=== PATIENT | female | born 1945 | race Caucasian/White ===

== ENCOUNTER 2018-02-24 10:00 | Day surgery (SDC) | payer MEDICARE, BC ==
[2018-02-23 11:11] LABS: BASOPHILS 0.3 % (0-2); EOSINOPHILS 2.9 % (0-7); HEMATOCRIT 42.5 % (36.0-48.0); HEMOGLOBIN 14.6 g/dL (12-16); IMMATURE GRANULOCYTES 0.2 % (0-5); LYMPHOCYTES 48.1 % (15-50); MCH 32.5 pg (26.0-34.0); MCHC 34.4 g/dL (31.0-37.0); MCV 94.7 fL (80.0-100.0); MEAN PLATELET VOLUME 9.4 fL (7.4-10.4); MONOCYTES 7.6 % (2-11); NEUTROPHILS 40.9 % (40-80); PLATELET COUNT 248 10x3/uL (130-400); RBC 4.49 10x6/uL (4.00-5.40); RDW 13.9 % (11.5-14.5); WBC 6.5 10x3/uL (4.8-10.8)
[2018-02-23 11:28] LABS: INR 0.97 (0.85-1.17); PROTIME 12.5 SECONDS (11.6-15.0)
[~2018-02-24] VITALS: Ht 162.6 cm; Wt 58.5 kg
--- NOTE | ~2018-02-24 | OP ---
PATIENT NAME: MARIXA RUSSELL MEDICAL RECORD: [id number] :49 LOCATION:D.[facility] ADMISSION DATE: SURGEON: LORENA HERNANDEZ MD DATE OF OPERATION: 02/24/2018 PREOPERATIVE DIAGNOSIS: Left inguinal hernia, symptomatic. POSTOPERATIVE DIAGNOSES: 1. Left indirect inguinal hernia. 2. Left groin lipoma associated with the round ligament. PROCEDURES: 1. Left inguinal hernia repair with mesh. 2. Excision of lipoma associated with the round ligament. SURGEON: Lorena Hernandez MD CHIEF DISPATCHER: None. BLOOD LOSS: Minimal. ANESTHESIA: General. COMPLICATIONS: None. The risks, possible complications and alternatives to the procedure were explained to the patient. She elects to proceed. OPERATIVE COURSE: The patient was conveyed to the operating room electively on 02/24/2018. General anesthesia was induced by the anesthesia staff. The abdomen and genitals were sterilely prepped and draped. A transverse incision was accomplished in the left groin. Sharp dissection was carried down through skin and subcutaneous tissue as well as Beau fascia. The external oblique aponeurosis was then incised along the direction of its fibers. I bluntly dissected down through the internal oblique and transversus abdominis muscle layers. The round ligament was cauterized and divided. There was a lipoma. I excised the lipoma with electrocautery. I performed a preperitoneal dissection. I reduced an indirect inguinal hernia. I then cut 2 ovals out of a polypropylene mesh. The 2 ovals were sutured together one on top of the other with a running #1 Surgidac. The mesh was placed in the preperitoneal space. Once I was satisfied with placement of the mesh, I allowed the internal oblique and transversus abdominis muscle layers to come together and I sutured them together with multiple interrupted horizontal mattress 0 Surgidac incorporating a portion of the mesh with these sutures. The external oblique aponeurosis was then closed with a running #1 Vicryls. During this operation, there was no apparent injury to any nervous structure. Beau fascia was approximated with interrupted 3-0 Vicryls. The subdermis was approximated with interrupted 3-0 Vicryls. The skin was approximated with a running intracuticular 4-0 Vicryl. Benzoin and Steri-Strips were applied. The patient was then extubated and conveyed to the post-anesthesia care unit where she was in stable condition. Dr. Shaikh will be performing the urologic procedure at a later date. TRANSINT:[id number] Voice Confirmation ID: [id number] DOCUMENT ID: [id number] OPERATIVE REPORT [id number] MARIXA RUSSELL ROBERT MD at 1840 CC: RAMESH OSULLIVAN MD, RAMESH HARTMAN, VIKTORIA HEMPHILL and ANT,[id number] DICTATION DATE: 03/10/18 09 CUSHION SEWER: 03/10/[address] [place] [address] 02/24/18 [address] [id number] [place] [address]
[~2018-02-24 10:00] MED LIST: ACETAMINOPHEN500 M1 PO; BAYER CHEWABLE81 MG PO; BETAPACE 80 MG80 MG PO; CARDIZEM CD240 MG PO; CARTIA XT180 MG PO; DILAUDID2 MG PO; METRONIDAZOLE70 GM VG; MOTRIN800 MG PO; NEURONTIN 300300 MG PO; OMEPRAZOLE40 MG PO; PEPCID20 MG PO; PHENERGAN25 MG RC; POTASSIUM99 M1 PO; TUMS500 MG PO; ZANTAC150 MG PO; ZOFRAN ODT4 MG/UDTAB PO
[2018-02-24 10:42] VITALS: BP 101/68; Ht 162.6 cm; Wt 58.5 kg
== END 2018-02-24 19:15 | disposition home or self-care (01) ==
LOC: D.OPS 10:00 → D.PAN 12:00 → D.OPS 19:15
PROVIDERS: Anesthesiology
DX: K40.91 Unilateral inguinal hernia, without obstruction or gangrene, recurrent (principal); D17.79 Benign lipomatous neoplasm of other sites

== ENCOUNTER 2018-03-02 19:49 | Emergency (ER) | payer MEDICARE, BC ==
[~2018-03-02] VITALS: Ht 162.6 cm; Wt 54.5 kg
[2018-03-02 20:28] VITALS: BP 124/60; Ht 162.6 cm; Wt 54.5 kg
[2018-03-02 20:47] LABS: APPEARANCE CLEAR (CLEAR); BILIRUBIN NEGATIVE (NEGATIVE); COLOR STRAW (YELLOW); GLUCOSE NEGATIVE (NEGATIVE); KETONE NEGATIVE (NEGATIVE); NITRITE NEGATIVE (NEGATIVE); PROTEIN NEGATIVE (NEGATIVE); SPECIFIC GRAVITY 1.005 (1.005-1.020); UROBILINOGEN NORMAL (NORMAL)
[2018-03-02 20:48] LABS: WHITE CELLS - URINE 0-5 /hpf (0-5)
[2018-03-02 20:49] LABS: BACTERIA FEW /hpf (NONE SEEN)
[2018-03-02 21:05] LABS: BASOPHILS 0.4 % (0-2); EOSINOPHILS 5.6 % (0-7); HEMATOCRIT 40.6 % (36.0-48.0); HEMOGLOBIN 14.1 g/dL (12-16); IMMATURE GRANULOCYTES 0.2 % (0-5); LYMPHOCYTES 48.2 % (15-50); MCH 32.7 pg (26.0-34.0); MCHC 34.7 g/dL (31.0-37.0); MCV 94.2 fL (80.0-100.0); MEAN PLATELET VOLUME 9.5 fL (7.4-10.4); MONOCYTES 5.7 % (2-11); NEUTROPHILS 39.9 % (40-80); PLATELET COUNT 258 10x3/uL (130-400); RBC 4.31 10x6/uL (4.00-5.40); RDW 13.8 % (11.5-14.5); WBC 8.1 10x3/uL (4.8-10.8)
[2018-03-02 21:24] LABS: ALBUMIN 3.4 g/dL (3.4-5.0); ANION GAP 12.4 mmol/L (8-16); BILIRUBIN - TOTAL 0.28 mg/dL (0.2-1.3); CALCIUM 9.6 mg/dL (8.5-10.1); CARBON DIOXIDE 27.7 mmol/L (21.0-32.0); POTASSIUM - SERUM 4.1 mmol/L (3.5-5.1); PROTEIN - SERUM 8.1 g/dL (6.4-8.2)
== END 2018-03-03 17:14 | disposition home or self-care (01) ==
LOC: D.ER 19:49
PROVIDERS: Family Medicine
DX: G89.18 Other acute postprocedural pain (principal)

== ENCOUNTER → 2018-03-08 16:34 | Outpatient (CLI) | payer MEDICARE, BC ==
[2018-03-02 20:28] VITALS: BMI 20.6
== END | disposition home or self-care (01) ==
LOC: D.CT 16:34
DX: R10.9 Unspecified abdominal pain (principal)

== ENCOUNTER 2018-04-20 06:25 | Day surgery (SDC) | payer MEDICARE, BC ==
[2018-04-19 15:19] LABS: HEMATOCRIT 39.3 % (36.0-48.0); HEMOGLOBIN 13.5 g/dL (12-16); MCH 32.2 pg (26.0-34.0); MCHC 34.4 g/dL (31.0-37.0); MCV 93.8 fL (80.0-100.0); MEAN PLATELET VOLUME 9.5 fL (7.4-10.4); RBC 4.19 10x6/uL (4.00-5.40); RDW 14.2 % (11.5-14.5); WBC 7.2 10x3/uL (4.8-10.8)
[~2018-04-20] VITALS: Ht 162.6 cm; Wt 59.0 kg
--- NOTE | ~2018-04-20 | OP ---
PATIENT NAME: MARIXA RUSSELL MEDICAL RECORD: [id number] :47 LOCATION:D[facility] ADMISSION DATE: SURGEON: LORENA CAIN MD DATE OF OPERATION: 04/20/2018 SURGEON: Lorena Cain MD ANESTHESIA: General anesthesia by Vickey Ibrahim CRNA. DIAGNOSES: Female stress urinary incontinence, midline cystocele, [place]-Walker, grade III. PROCEDURE: Cystoscopy, pubovaginal sling with [employer] Obtryx mesh, cystocele repair with [employer] Uphold mesh. FINDINGS: On cystoscopy, single ureteral orifices bilaterally. No bladder tumors. No bladder injury. SPECIMENS: Anterior vaginal wall mucosa. BLOOD LOSS: 15 mL. CLINICAL HISTORY: This is a 72-year-old female, A0, who was referred by Dr. Pedro Oneil for urinary stress incontinence as well as pelvic prolapse. She had a hysterectomy for cervical cancer at age 26. She also had a left inguinal hernia repaired in 1992, but the hernia did recur. Recently, Dr. Esteves repaired the left inguinal hernia again. At that surgery, I was supposed to have repaired the patient's cystocele and placed a pubovaginal sling at the same time. However, I had an emergency surgery that arose and I could not complete the patient's surgery, so at that time only Dr. Esteves completed his left inguinal hernia repair. She comes now to have the pubovaginal sling and cystocele repair. She has agreed to proceed with mesh. She is aware of the risks of mesh use including infection, graft erosion, graft extrusion into the vagina, dyspareunia, chronic pelvic pain. She also has issues with urge fecal incontinence, which this operation will not address. She does have an enterocele, [place]-Walker grade I on examination. If this gets worse after the anterior repair, then she may require an abdominal sacral colpopexy. Also, there is a risk that she may develop a rectocele after the anterior repair. She is allergic to BACTRIM, CODEINE, HYDROMORPHONE, and SULFA. She was given Ancef vocational trainer to the OR. DESCRIPTION OF PROCEDURE: The patient was given induction of general anesthesia. She was placed in the dorsal lithotomy position and shaved, prepped and draped. She was then placed into a degree of Trendelenburg position. A weighted speculum was placed to hold down the posterior vaginal wall. A Ortega catheter was inserted into the bladder and put to bag drainage. Then, #1 nylon sutures were used to retract the labia majora laterally. These were anchored to the medial thighs. The cystocele was evident. The anterior vaginal wall was infiltrated with Pitressin solution. Twenty units of Pitressin was dissolved in 100 mL of injectable normal saline. This solution was used in the anterior vaginal wall for hydrodissection. After the injection of this fluid, a transverse incision was made at the level of the bladder neck. The mucosa in this region is relatively thin. It is also redundant. Dissection was used with Metzenbaum scissors. We dissected the undersurface of the bladder away from the anterior vaginal wall. Laterally, we entered through the pubocervical fascia. OPERATIVE REPORT [id number] MARIXA RUSSELL Posteriorly, we entered into the presacral space, which contained the ischial spines. I cleared off also the obturator membrane laterally and anteriorly. At this point, we were ready to put the [employer] Uphold graft. This has 2 graft arms, which go through the sacrospinous ligaments for anchorage. We landmarked the ischial spine and then moved the Capio suture automation driver 1 cm medial. The graft arm was loaded on to the Capio suture automation driver and then the graft arm was placed through the sacrospinous ligament. This was done on each side. By pulling gently on the graft arms we had reduction of the cystocele. I tacked the inferior edge of the graft to the anterior vaginal wall using 4-0 Vicryl simple interrupted suture. The distal edge of the graft was then tacked to the bladder neck region with a couple of simple interrupted 4-0 Vicryl sutures. This will prevent the graft from furrowing up when tension was applied. We then landmarked for the pubovaginal sling. The landmark was inferior to the insertion of the adductor longus tendon where it inserts onto the descending pubic ramus. A landmark was made on either side with a marking pen and a stab incision was made with a 15 blade here. The helical trocars were then passed through the incision in the groin, posterior to the descending pubic ramus and then exiting out through the apex of the obturator fossa. The tip of the needle then entered into the vaginal dissection space. Here the end of the pubovaginal sling was attached to the needle on either side and these needles were withdrawn. This resulted in transobturator passage of the graft arms for the pubovaginal sling, which is the [employer] Obtryx. The Obtryx graft has a tab on the middle of the graft to signify the center portion. This tab was placed under the mid urethra. At this point, we deflated the Ortega balloon and removed the Ortega catheter. Cystoscopy was performed. No bladder injury was seen. The bladder was filled through the cystoscope. Manual pressure was applied suprapubically and a bit of urinary leakage could be seen. A slight increase in the pubovaginal sling tension resulted in cessation of the leakage with manual suprapubic pressure. At this point, the middle point tab was completely removed by cutting the suture. The clear plastic sheath material on either ends of the graft arms of the pubovaginal sling were removed by cutting a suture. A Paula clamp was placed between the urethra and the graft in order to prevent an increase in tension once these graft arm sheaths were removed. The graft arms were then cut where they exited the groin incisions. The groin incisions were closed with simple interrupted 3-0 Monocryl. Similarly, the clear plastic sheath material on the Uphold graft was completely removed. The excess length of graft was removed where I could see it. The wound was then irrigated out with normal saline. We then proceeded with closure of the vaginal incision. With the reduction of the cystocele, the anterior vaginal mucosa was quite redundant. Also, the portion of the mucosa near the bladder neck was somewhat thin and therefore this excess tissue was cut off with Metzenbaum scissors. The transverse incision was then closed using running 3-0 Monocryl. At the end of the procedure, the Ortega catheter, which we had reinserted to allow drainage of the bladder irrigation fluid was removed. A vaginal packing consisting of Kerlix infiltrated with estrogen cream was placed into the vagina. The patient was then awakened and brought to the recovery room. Prior to her going home today, the vaginal packing will be removed. I will see her in followup in a few days' time to check on her voiding symptoms. TRANSINT:[id number] Voice Confirmation ID: [id number] DOCUMENT ID: [id number] OPERATIVE REPORT [id number] MARIXA RUSSELL ROBERT S MD at 1149 CC: [id number] DICTATION DATE: 04/20/18 1003 WARP TYING MACHINE KNOTTER: 04/20/18 [address] [id number] [place] [id number]
[2018-04-20 07:02] VITALS: BP 97/58; Ht 162.6 cm; Wt 59.0 kg
== END 2018-04-20 15:10 | disposition home or self-care (01) ==
LOC: D.OPS 06:25 → D.PAN 08:00 → D.OPS 08:00
PROVIDERS: Anesthesiology
DX: N39.3 Stress incontinence (female) (male) (principal); N81.11 Cystocele, midline; N81.89 Other female genital prolapse; R15.2 Fecal urgency; Z88.5 Allergy status to narcotic agent; Z88.2 Allergy status to sulfonamides; Z01.812 Encounter for preprocedural laboratory examination

== ENCOUNTER → 2018-04-30 13:49 | Outpatient (CLI) | payer MEDICARE, BC ==
[2018-04-20 07:02] VITALS: BMI 22.3
== END | disposition home or self-care (01) ==
LOC: D.LABREF 13:49
DX: R31.9 Hematuria, unspecified (principal); D72.829 Elevated white blood cell count, unspecified

== ENCOUNTER → 2018-05-20 17:48 | Outpatient (CLI) | payer MEDICARE, BC ==
[2018-04-20 07:02] VITALS: BMI 22.3
== END | disposition home or self-care (01) ==
LOC: D.LABREF 17:48
DX: D72.829 Elevated white blood cell count, unspecified (principal)

== ENCOUNTER 2019-12-02 05:08 | Emergency (ER) | payer MEDICARE, BC ==
[~2019-12-02] VITALS: Ht 162.6 cm; Wt 56.8 kg
[2019-12-02 05:08] VITALS: Ht 162.6 cm; Wt 56.8 kg
[2019-12-02 05:41] LABS: BASOPHILS 0.6 % (0-2); EOSINOPHILS 6.6 % (0-7); HEMATOCRIT 43.7 % (36.0-48.0); HEMOGLOBIN 14.3 g/dL (12-16); IMMATURE GRANULOCYTES 0.2 % (0-5); LYMPHOCYTES 39.8 % (15-50); MCH 31.2 pg (26.0-34.0); MCHC 32.7 g/dL (31.0-37.0); MCV 95.2 fL (80.0-100.0); MEAN PLATELET VOLUME 9.6 fL (7.4-10.4); MONOCYTES 5.3 % (2-11); NEUTROPHILS 47.5 % (40-80); PLATELET COUNT 267 10x3/uL (130-400); RBC 4.59 10x6/uL (4.00-5.40); RDW 13.9 % (11.5-14.5); WBC 6.6 10x3/uL (4.8-10.8)
[2019-12-02 05:54] LABS: ANION GAP 11.3 mmol/L (8-16); CALCIUM 10.4 mg/dL (8.5-10.1); CARBON DIOXIDE 27.2 mmol/L (21.0-32.0); CREATININE - SERUM 1.1 mg/dL (0.6-1.3); POTASSIUM - SERUM 4.5 mmol/L (3.5-5.1)
[2019-12-02 06:01] LABS: ALBUMIN 3.9 g/dL (3.4-5.0); BILIRUBIN - TOTAL 0.28 mg/dL (0.2-1.3); PROTEIN - SERUM 8.1 g/dL (6.4-8.2)
[2019-12-02 06:13] LABS: BILIRUBIN NEGATIVE (NEGATIVE); GLUCOSE NEGATIVE (NEGATIVE); KETONE NEGATIVE (NEGATIVE); NITRITE NEGATIVE (NEGATIVE); SPECIFIC GRAVITY 1.025 (1.005-1.020); UROBILINOGEN NORMAL (NORMAL)
[2019-12-02 06:14] LABS: BACTERIA FEW /hpf (NEGATIVE); EPITHELIAL CELLS 0-5 /hpf (0-5); RED CELLS - URINE 0-5 /hpf (0-5); WHITE CELLS - URINE 0-5 /hpf (NEGATIVE)
[2019-12-02] MEDS ORDERED: PERCOCET 5-3251 TAB PO (06:32)
[2019-12-02] MEDS ORDERED: VALTREX1000 MG PO (06:32)
[2019-12-02 06:53] VITALS: BP 168/84
== END 2019-12-02 06:53 | disposition home or self-care (01) ==
LOC: D.ER 05:08
PROVIDERS: Family Medicine
DX: B02.9 Zoster without complications (principal); I10 Essential (primary) hypertension; Z95.0 Presence of cardiac pacemaker; M54.9 Dorsalgia, unspecified; K21.9 Gastro-esophageal reflux disease without esophagitis

== ENCOUNTER 2020-11-26 09:25 | Inpatient (IN) | payer MEDICARE, BC ==
[~2020-11-26 09:25] MED LIST changes: +PERCOCET 5-3251 TAB PO; +VALTREX1000 MG PO
[2020-11-26 10:13] LABS: BILIRUBIN NEGATIVE (NEGATIVE); KETONE NEGATIVE (NEGATIVE); NITRITE NEGATIVE (NEGATIVE); UROBILINOGEN NORMAL mg/dL (< 2)
[2020-11-26 10:15] LABS: BASOPHILS 0 % (0-2); EOSINOPHILS 0 % (0-7); HEMATOCRIT 43.4 % (36.0-48.0); HEMOGLOBIN 14.4 g/dL (12-16); IMMATURE GRANULOCYTES 0.2 % (0-5); LYMPHOCYTE ABS# 1.93 10x3/uL (1.18-3.74); LYMPHOCYTES 19.2 % (15-50); MCHC 33.2 g/dL (31.0-37.0); MCV 93.3 fL (80.0-100.0); MEAN PLATELET VOLUME 9.5 fL (7.4-10.4); MONOCYTES 3.8 % (2-11); NEUTROPHIL ABS# 7.72 10x3/uL (1.56-6.13); NEUTROPHILS 76.8 % (40-80); PLATELET COUNT 245 10x3/uL (130-400); RBC 4.65 10x6/uL (4.00-5.40); RDW 14.1 % (11.5-14.5); WBC 10.1 10x3/uL (4.8-10.8)
[2020-11-26 10:22] LABS: ANION GAP 13.5 mmol/L (8-16); CALCIUM 9.6 mg/dL (8.5-10.1); CREATININE - SERUM 0.9 mg/dL (0.6-1.3); POTASSIUM - SERUM 4.5 mmol/L (3.5-5.1)
[2020-11-26 10:27] LABS: ALBUMIN 3.7 g/dL (3.4-5.0); BILIRUBIN - TOTAL 0.31 mg/dL (0.2-1.3); PROTEIN - SERUM 7.5 g/dL (6.4-8.2)
[2020-11-26] MEDS ORDERED: DOXYCYCLINE HY100 M2 (16:06)
[2020-11-27 06:32] LABS: APTT 23.8 SECONDS (22.8-39.4); INR 1.1 (0.85-1.17); PROTIME 13.2 SECONDS (11.6-15.0)
[2020-11-27 06:34] LABS: ALBUMIN 3.1 g/dL (3.4-5.0); ANION GAP 12.6 mmol/L (8-16); BILIRUBIN - TOTAL 0.22 mg/dL (0.2-1.3); CALCIUM 8.7 mg/dL (8.5-10.1); CARBON DIOXIDE 25.8 mmol/L (21.0-32.0); POTASSIUM - SERUM 4.4 mmol/L (3.5-5.1); PROTEIN - SERUM 6.5 g/dL (6.4-8.2)
[2020-11-27 07:04] LABS: BASOPHILS 0 % (0-2); EOSINOPHILS 0 % (0-7); HEMATOCRIT 38.8 % (36.0-48.0); HEMOGLOBIN 12.8 g/dL (12-16); IMMATURE GRANULOCYTES 0.3 % (0-5); LYMPHOCYTE ABS# 1.49 10x3/uL (1.18-3.74); MCV 93.9 fL (80.0-100.0); MEAN PLATELET VOLUME 9.6 fL (7.4-10.4); MONOCYTES 1.7 % (2-11); NEUTROPHIL ABS# 4.85 10x3/uL (1.56-6.13); PLATELET COUNT 228 10x3/uL (130-400); RBC 4.13 10x6/uL (4.00-5.40)
[2020-11-27 07:11] LABS: WBC 6.5 10x3/uL (4.8-10.8)
[2020-11-28 07:08] LABS: BASOPHILS 0 % (0-2); EOSINOPHILS 0 % (0-7); HEMATOCRIT 39.3 % (36.0-48.0); HEMOGLOBIN 12.9 g/dL (12-16); IMMATURE GRANULOCYTES 0.3 % (0-5); LYMPHOCYTE ABS# 1.02 10x3/uL (1.18-3.74); LYMPHOCYTES 15.8 % (15-50); MCHC 32.8 g/dL (31.0-37.0); MCV 94.5 fL (80.0-100.0); MONOCYTES 1.4 % (2-11); NEUTROPHIL ABS# 5.34 10x3/uL (1.56-6.13); NEUTROPHILS 82.5 % (40-80); PLATELET COUNT 239 10x3/uL (130-400); RBC 4.16 10x6/uL (4.00-5.40); RDW 14.1 % (11.5-14.5); WBC 6.5 10x3/uL (4.8-10.8)
[2020-11-28 07:26] LABS: ANION GAP 10.4 mmol/L (8-16); BILIRUBIN - TOTAL 0.31 mg/dL (0.2-1.3); CALCIUM 8.3 mg/dL (8.5-10.1); CARBON DIOXIDE 25.2 mmol/L (21.0-32.0); CREATININE - SERUM 0.9 mg/dL (0.6-1.3); POTASSIUM - SERUM 4.6 mmol/L (3.5-5.1); PROTEIN - SERUM 6.3 g/dL (6.4-8.2)
[2020-11-28 16:14] LABS: T4 THYROXINE 6.6 ug/dL (4.7-13.3); THYROID STIMULATING HORMONE 0.18 uIU/mL (0.36-3.74)
[2020-11-29 06:05] LABS: BASOPHILS 0 % (0-2); EOSINOPHILS 0 % (0-7); HEMATOCRIT 39.2 % (36.0-48.0); HEMOGLOBIN 12.9 g/dL (12-16); IMMATURE GRANULOCYTES 0.5 % (0-5); LYMPHOCYTES 17.5 % (15-50); MCHC 32.9 g/dL (31.0-37.0); MCV 94.2 fL (80.0-100.0); MEAN PLATELET VOLUME 10.4 fL (7.4-10.4); MONOCYTES 4.6 % (2-11); NEUTROPHIL ABS# 4.87 10x3/uL (1.56-6.13); NEUTROPHILS 77.4 % (40-80); PLATELET COUNT 240 10x3/uL (130-400); RBC 4.16 10x6/uL (4.00-5.40); RDW 13.7 % (11.5-14.5); WBC 6.3 10x3/uL (4.8-10.8)
[2020-11-29 06:34] LABS: ALBUMIN 2.9 g/dL (3.4-5.0); ANION GAP 12.9 mmol/L (8-16); BILIRUBIN - TOTAL 0.4 mg/dL (0.2-1.3); CALCIUM 8.3 mg/dL (8.5-10.1); CARBON DIOXIDE 25.6 mmol/L (21.0-32.0); POTASSIUM - SERUM 4.5 mmol/L (3.5-5.1); PROTEIN - SERUM 6.2 g/dL (6.4-8.2)
[2020-11-30 05:39] LABS: BASOPHILS 0 % (0-2); EOSINOPHILS 0 % (0-7); HEMATOCRIT 38.4 % (36.0-48.0); HEMOGLOBIN 12.6 g/dL (12-16); IMMATURE GRANULOCYTES 0.4 % (0-5); LYMPHOCYTE ABS# 2.07 10x3/uL (1.18-3.74); LYMPHOCYTES 18.4 % (15-50); MCH 30.7 pg (26.0-34.0); MCHC 32.8 g/dL (31.0-37.0); MCV 93.7 fL (80.0-100.0); MEAN PLATELET VOLUME 10.4 fL (7.4-10.4); MONOCYTES 10.1 % (2-11); NEUTROPHIL ABS# 8.02 10x3/uL (1.56-6.13); NEUTROPHILS 71.1 % (40-80); PLATELET COUNT 207 10x3/uL (130-400); RDW 13.7 % (11.5-14.5)
[2020-11-30 05:45] LABS: WBC 11.3 10x3/uL (4.8-10.8)
[2020-11-30 06:17] LABS: ALBUMIN 2.8 g/dL (3.4-5.0); ANION GAP 11.8 mmol/L (8-16); BILIRUBIN - TOTAL 0.4 mg/dL (0.2-1.3); CALCIUM 8.2 mg/dL (8.5-10.1); CARBON DIOXIDE 26.2 mmol/L (21.0-32.0); CREATININE - SERUM 0.9 mg/dL (0.6-1.3); PROTEIN - SERUM 5.9 g/dL (6.4-8.2)
[2020-12-01 06:56] LABS: BASOPHILS 0 % (0-2); EOSINOPHILS 0 % (0-7); HEMATOCRIT 40.1 % (36.0-48.0); HEMOGLOBIN 13.3 g/dL (12-16); IMMATURE GRANULOCYTES 0.5 % (0-5); LYMPHOCYTE ABS# 0.62 10x3/uL (1.18-3.74); LYMPHOCYTES 7.1 % (15-50); MCH 31.1 pg (26.0-34.0); MCHC 33.2 g/dL (31.0-37.0); MCV 93.7 fL (80.0-100.0); MONOCYTES 6.7 % (2-11); NEUTROPHIL ABS# 7.46 10x3/uL (1.56-6.13); NEUTROPHILS 85.7 % (40-80); PLATELET COUNT 195 10x3/uL (130-400); RBC 4.28 10x6/uL (4.00-5.40); RDW 14.1 % (11.5-14.5); WBC 8.7 10x3/uL (4.8-10.8)
[2020-12-01 07:21] LABS: ANION GAP 11.1 mmol/L (8-16); BILIRUBIN - TOTAL 0.7 mg/dL (0.2-1.3); CALCIUM 8.9 mg/dL (8.5-10.1); CARBON DIOXIDE 29.3 mmol/L (21.0-32.0); POTASSIUM - SERUM 4.4 mmol/L (3.5-5.1); PROTEIN - SERUM 6.4 g/dL (6.4-8.2)
[2020-12-01 18:30] LABS: BILIRUBIN NEGATIVE (NEGATIVE); KETONE NEGATIVE (NEGATIVE); NITRITE NEGATIVE (NEGATIVE)
[2020-12-01 18:31] LABS: BACTERIA FEW HPF (NONE SEEN); WHITE CELLS - URINE 2 HPF (0-4)
[2020-12-02 05:10] LABS: BASOPHILS 0 % (0-2); EOSINOPHILS 0 % (0-7); HEMATOCRIT 35.4 % (36.0-48.0); HEMOGLOBIN 11.6 g/dL (12-16); IMMATURE GRANULOCYTES 0.3 % (0-5); LYMPHOCYTE ABS# 0.67 10x3/uL (1.18-3.74); LYMPHOCYTES 10.7 % (15-50); MCH 30.8 pg (26.0-34.0); MCHC 32.8 g/dL (31.0-37.0); MCV 93.9 fL (80.0-100.0); MEAN PLATELET VOLUME 10.5 fL (7.4-10.4); MONOCYTES 5.2 % (2-11); NEUTROPHIL ABS# 5.27 10x3/uL (1.56-6.13); NEUTROPHILS 83.8 % (40-80); PLATELET COUNT 170 10x3/uL (130-400); RBC 3.77 10x6/uL (4.00-5.40); RDW 14.4 % (11.5-14.5)
[2020-12-02 05:13] LABS: WBC 6.3 10x3/uL (4.8-10.8)
[2020-12-02 05:26] LABS: ALBUMIN 2.5 g/dL (3.4-5.0); ANION GAP 11.7 mmol/L (8-16); BILIRUBIN - TOTAL 0.52 mg/dL (0.2-1.3); CALCIUM 8.3 mg/dL (8.5-10.1); CARBON DIOXIDE 25.8 mmol/L (21.0-32.0); CREATININE - SERUM 0.9 mg/dL (0.6-1.3); POTASSIUM - SERUM 4.5 mmol/L (3.5-5.1); PROTEIN - SERUM 5.5 g/dL (6.4-8.2)
[2020-12-02 10:05] LABS: INR 1.13 (0.85-1.17); PROTIME 13.4 SECONDS (11.6-15.0)
[2020-12-03 10:29] LABS: ALBUMIN 2.3 g/dL (3.4-5.0); ANION GAP 9.8 mmol/L (8-16); BILIRUBIN - TOTAL 0.58 mg/dL (0.2-1.3); CALCIUM 7.8 mg/dL (8.5-10.1); CARBON DIOXIDE 25.6 mmol/L (21.0-32.0); CREATININE - SERUM 0.8 mg/dL (0.6-1.3); POTASSIUM - SERUM 4.4 mmol/L (3.5-5.1); PROTEIN - SERUM 4.7 g/dL (6.4-8.2)
[2020-12-03 10:43] LABS: BASOPHILS 0 % (0-2); EOSINOPHILS 0 % (0-7); HEMATOCRIT 33.5 % (36.0-48.0); HEMOGLOBIN 11.2 g/dL (12-16); IMMATURE GRANULOCYTES 0.5 % (0-5); LYMPHOCYTE ABS# 0.73 10x3/uL (1.18-3.74); LYMPHOCYTES 7.9 % (15-50); MCH 30.9 pg (26.0-34.0); MCHC 33.4 g/dL (31.0-37.0); MCV 92.5 fL (80.0-100.0); MEAN PLATELET VOLUME 10.6 fL (7.4-10.4); MONOCYTES 7.2 % (2-11); NEUTROPHIL ABS# 7.77 10x3/uL (1.56-6.13); NEUTROPHILS 84.4 % (40-80); PLATELET COUNT 142 10x3/uL (130-400); RBC 3.62 10x6/uL (4.00-5.40); RDW 14.1 % (11.5-14.5)
[2020-12-03 10:47] LABS: WBC 9.2 10x3/uL (4.8-10.8)
[2020-12-04 05:34] LABS: BASOPHILS 0 % (0-2); EOSINOPHILS 0 % (0-7); HEMATOCRIT 36.5 % (36.0-48.0); HEMOGLOBIN 12.2 g/dL (12-16); IMMATURE GRANULOCYTES 0.9 % (0-5); LYMPHOCYTE ABS# 0.64 10x3/uL (1.18-3.74); LYMPHOCYTES 5.8 % (15-50); MCH 30.9 pg (26.0-34.0); MCHC 33.4 g/dL (31.0-37.0); MCV 92.4 fL (80.0-100.0); MONOCYTES 4.5 % (2-11); NEUTROPHIL ABS# 9.79 10x3/uL (1.56-6.13); NEUTROPHILS 88.8 % (40-80); PLATELET COUNT 168 10x3/uL (130-400); RBC 3.95 10x6/uL (4.00-5.40); RDW 14.3 % (11.5-14.5)
[2020-12-04 05:52] LABS: ALBUMIN 2.3 g/dL (3.4-5.0); ANION GAP 10.9 mmol/L (8-16); BILIRUBIN - TOTAL 0.45 mg/dL (0.2-1.3); CALCIUM 7.9 mg/dL (8.5-10.1); CARBON DIOXIDE 24.6 mmol/L (21.0-32.0); CREATININE - SERUM 0.9 mg/dL (0.6-1.3); POTASSIUM - SERUM 4.5 mmol/L (3.5-5.1); PROTEIN - SERUM 5.2 g/dL (6.4-8.2)
[2020-12-04] MEDS ORDERED: FLOMAX0.4 MG PO (09:27)
[2020-12-04] MEDS ORDERED: ROBAXIN PO (09:27)
[2020-12-04] MEDS ORDERED: PREDNISONE10 MG PO (09:30)
[2020-12-04] MEDS ORDERED: NICODERM CQ1 EAC2 TOPICAL (10:57)
[2020-12-04 11:11] LABS: HEPATITIS C ANTIBODY <0.1 S/CO RAT (0.0-0.9)
[2020-12-04] MEDS ORDERED: HYDROCODON-ACE1 EAC7 PO (11:51)
[2020-12-04] MEDS ORDERED: HYDROCODON-ACE1 EA10 PO (18:33)
== END 2020-12-04 17:35 | DRG 519 ==
LOC: D.ER 09:25 → D.MS 14:54
PROVIDERS: Emergency Medicine; Family Medicine; Neurological Surgery; ADMIT Emergency Medicine
PROC: 0ST20ZZ Resection of Lumbar Vertebral Disc, Open Approach (ICD-10-PCS; principal; 2020-11-30 07:00)
DX: M51.16 Intervertebral disc disorders with radiculopathy, lumbar region (principal); F17.203 Nicotine dependence unspecified, with withdrawal; I10 Essential (primary) hypertension; K21.9 Gastro-esophageal reflux disease without esophagitis; M19.90 Unspecified osteoarthritis, unspecified site; G89.29 Other chronic pain

== ENCOUNTER 2020-12-04 17:04 | Inpatient (IN) | payer MEDICARE, BC ==
[~2020-12-04] VITALS: Ht 162.6 cm; Wt 54.4 kg
--- NOTE | ~2020-12-04 | RHP ---
PATIENT: MARIXA RUSSELL MEDICAL RECORD: [id number] ACCOUNT: [id number] [facility] ADMISSION DATE: 12/04/20 REHABILITATION HISTORY AND PHYSICAL EXAMINATION POST ADMISSION PHYSICIAN EXAMINATION ADMITTING DIAGNOSIS: Radiculopathy of lumbar spine. HISTORY OF PRESENT ILLNESS: The patient is status post a lumbar laminectomy and facetectomy of L4-L5 and lateral discectomy. She is a 75-year-old female patient who resides with her sister. She has been living at home with her care, ambulating with a walker, dragging her right lower extremity, which her daughter felt was worse now. On 11/27, she presented to ED with complaints of left lower back pain that radiated down her left groin. She had no history of injury. The patient reported that Dr. Oneil had called in a steroid dosepak, but it did not get better. She is an everyday smoker. She has intractable back pain that failed outpatient therapy, left lower extremity pain with radiculopathy, transaminitis, nicotine dependence and withdrawal. The patient was receiving IV Decadron for inflammation. Dr. Chávez was consulted in regards to her left hip pain. It was documented that he will follow through after discharge CT. She had 3 incisions to her back and wound care daily. She developed urinary retention, has a Ortega catheter placed and Urology was consulted. She is now complaining of pain to her right hip and foot secondary to her pacemaker. She is unable to have an MRI. CT was ordered. Oxygen levels have been low normal and she will need to be followed throughout her stay. She is receiving intensive therapy including increasing her mobility, helping her with alternative forms of pain control, working on her balance, training on her ADLs. Her electrolytes have been off. Medications have needed to be adjusted. She is only walking 5 feet with 50% assist. Once again, she resides with her sister. She has had multiple falls at home. These are all barriers to her discharge home. Comorbidities include arthritis, decrease in mobility, decrease in physical functioning, difficulty walking, hypertension, pain control, safety problems, tobacco abuse, transaminitis and urinary retention. PAST MEDICAL HISTORY: Significant for hypertension, chronic cough, reflux, arthritis, chronic back pain. She does have a pacemaker in place. PAST SURGICAL HISTORY: Includes pacemaker placement, hemorrhoidectomy, hysterectomy, bladder repair surgery and cholecystectomy. ALLERGIES: SULFA, CODEINE, AND DILAUDID. CURRENT MEDICATIONS: Include Flomax, she is on 0.4 mg daily. She is on prednisone 40 mg taper. She is on a Nicoderm patch 21 mg daily, aspirin chewable 81 mg daily, diltiazem 180 mg daily, Robaxin 1000 mg b.i.d., [place] 10/325 one tab q.6 hours p.r.n., Tylenol as needed and MiraLax 17 grams in 8 ounces of water daily. HABITS: Does have a strong family history of tobacco use. No alcohol use. FAMILY HISTORY: Noncontributory. SOCIAL HISTORY: The patient hopes to return back home with her sister and get back to her prior level of functioning. HISTORY AND PHYSICAL [id number] MARIXA RUSSELL REVIEW OF SYSTEMS: GENERAL: She only does complain of weakness and fatigue. HEENT: She denies cold, cough or congestion. CARDIOVASCULAR: She denies any chest pain. LUNGS: Does complain of a little bit of shortness of breath. PHYSICAL EXAMINATION: VITAL SIGNS: Stable. She is afebrile. Her pulse ox is 95. Her blood pressure 164/78, pulse is 60, temperature is 98.8. GENERAL: An elderly female in no acute distress, alert upon exam. HEENT: Normocephalic and atraumatic. Mucosa moist. NECK: Supple. No lymphadenopathy. LUNGS: Clear in upper gar[place]. No wheezing or rales. HEART: Regular rate and rhythm. No murmurs, rubs or gallops. ABDOMEN: Soft, benign, nondistended. Positive bowel sounds times 4. EXTREMITIES: No clubbing, cyanosis or edema. NEUROLOGIC: She does have some diffuse weakness. LABORATORY DATA: Her white count is 14.3 secondary to her steroids. Her H&H are 12 and 38 and platelet count is 164. Sodium 135, potassium 4.0, BUN and creatinine of 30 and 0.9 and blood sugar was noted to be 151. Her admit UA did show positive nitrites and leukocyte esterase. ASSESSMENT: This is a 75-year-old female patient admitted to rehab with a working diagnosis of lumbar radiculopathy. The patient has potential to make improvement. We instituted the following multidisciplinary therapies including, but not limited to physical, occupational, respiratory, speech, nutritional services, prosthetics and orthotics. Given her complex medical condition and risks for more complications, rehabilitation services cannot be provided at a low level of care such as a fdc facility. PLAN: [facility] to include the following disciplines: A. Physical therapy to improve gait, all transfer skills and bed mobility to a modified independent level. B. Occupational therapy to improve activities of daily living. C. Case management to help with discharge planning and placement options. D. Nutrition to address nutritional concerns. 2. The patient's current medication and medical care will be continued. 3. The patient will be placed on standard fall precautions. 4. We will go ahead and treat her UTI secondary to positive nitrites and leukocyte esterase. We will await the culture, but start empiric antibiotics and I am going to discuss with care team today her situation and see again in the a.m. TRANSINT:[id number] Voice Confirmation ID: [id number] DOCUMENT ID: [id number] KETTY notes whether there has been none or any medical/functional change since admission: - No change since preadmission screen. KETTY attests patient continues to be appropriate for IRF: HISTORY AND PHYSICAL [id number] MARIXA RUSSELL - Continues to be appropriate. JULIEN NEVES MD CC: [id number] DICTATION DATE: 12/05/20 0836 DYNAMIC ETCHING PROCESSOR: 12/05/20 1115 ADM IN [facility] [address] [place] [address]
[~2020-12-04 17:04] MED LIST changes: +DOXYCYCLINE HY100 M2; +FLOMAX0.4 MG PO; +HYDROCODON-ACE1 EAC7 PO; +NICODERM CQ1 EAC2 TOPICAL; +PREDNISONE10 MG PO; +ROBAXIN PO
[2020-12-04] MEDS ORDERED: HYDROCODON-ACE1 EA10 PO (18:33)
[2020-12-04 20:08] VITALS: BP 134/64
[2020-12-05 00:18] VITALS: BP 134/64; BMI 20.6
--- NOTE | 2020-12-05 01:44 | NUR ---
PT RESTING WITH EYES CLOSED. RESPIRATIONS EVEN AND UNLABORED. BED IS LOW, BED ALARM ON AND CALL LIGHT IS WITHIN REACH.
[2020-12-05 05:16] LABS: BILIRUBIN NEGATIVE (NEGATIVE); KETONE NEGATIVE (NEGATIVE); NITRITE POSITIVE (NEGATIVE); UROBILINOGEN NORMAL mg/dL (< 2)
[2020-12-05 05:17] LABS: BACTERIA MANY HPF (NONE SEEN); SQUAMOUS EPITHELIAL 0-5 HPF (0-4)
[2020-12-05 06:36] LABS: BASOPHILS 0 % (0-2); EOSINOPHILS 0 % (0-7); HEMATOCRIT 38.5 % (36.0-48.0); HEMOGLOBIN 12.8 g/dL (12-16); LYMPHOCYTE ABS# 1.25 10x3/uL (1.18-3.74); LYMPHOCYTES 8.7 % (15-50); MCH 30.8 pg (26.0-34.0); MCHC 33.2 g/dL (31.0-37.0); MCV 92.5 fL (80.0-100.0); MEAN PLATELET VOLUME 10.6 fL (7.4-10.4); MONOCYTES 7.4 % (2-11); NEUTROPHIL ABS# 11.84 10x3/uL (1.56-6.13); NEUTROPHILS 82.9 % (40-80); PLATELET COUNT 164 10x3/uL (130-400); RBC 4.16 10x6/uL (4.00-5.40); RDW 14.4 % (11.5-14.5)
[2020-12-05 06:37] LABS: WBC 14.3 10x3/uL (4.8-10.8)
[2020-12-05 07:20] LABS: ANION GAP 14.8 mmol/L (8-16); CALCIUM 8.1 mg/dL (8.5-10.1); CARBON DIOXIDE 21.2 mmol/L (21.0-32.0); CREATININE - SERUM 0.9 mg/dL (0.6-1.3)
[2020-12-05 07:58] VITALS: BP 164/78
[2020-12-05 13:17] VITALS: Ht 162.6 cm; Wt 54.4 kg
--- NOTE | 2020-12-05 13:31 | NUR ---
CARE TEAM MEETING: PATIENT ADMITTED TO REHAB FROM ACUTE FLOOR. DR. HEMPHILL IS HER PCP. DSICHARGE PLANS ARE FOR HER TO RETURN TO HER HOME. PATIENT IS NEW TO UNIT AND WILL BE RA AT NEXT MEETING. WILL CONTINUE TO FOLLOW WITH PATIENT.
[2020-12-05 19:51] VITALS: BP 145/75
--- NOTE | 2020-12-06 05:55 | NUR ---
I have reviewed this patient and I concur with the Shift Assessment completed by the Licensed Practical Nurse today this shift.
[2020-12-06 08:27] VITALS: BP 124/68
--- NOTE | 2020-12-06 08:41 | NUR ---
REMOVED THE MARQUES. SHE TOOK HER MEDICATIONS WITHOUT ANY PROBLEMS. SHE HAS 2 STAPES TO HER BACK WITH BRUISING. SHE IS WEARING THE SCD'S. THE CALL LIGHT IS WITHIN REACH AND THE BED ALARM IS ON.
--- NOTE | 2020-12-06 18:45 | NUR ---
SHE STATES SHE WAS INCONTINENT IN LEIGHA BRIEF TODAY. I DID NOT SEE IT. THE BLADDER SCAN READS 30 CC. WILL MONITOR HER URINE OUTPUT. THE CALL LIGHT IS WITHIN REACH.
--- NOTE | 2020-12-06 20:04 | NUR ---
PATIENT RESTING IN BED. WATCHING T.V. BED ALARM ON. CALL LIGHT WITHIN REACH. VOICES NO NEEDS AT THIS TIME. WILL COTNINUE WITH PLAN OF CARE
[2020-12-06 20:19] VITALS: BP 138/61
--- NOTE | 2020-12-06 22:36 | NUR ---
PATIENT GIVEN PRN TUMS AND ZOFRAN FOR N/V. NO MORE C/O NAUSEA.
--- NOTE | 2020-12-07 02:54 | NUR ---
PATIENT RESTING WELL. EYES CLOSED. BED ALARM ON. CALL LIGHT WITHIN REACH
--- NOTE | 2020-12-07 04:50 | NUR ---
I have reviewed this patient and I concur with the Shift Assessment completed by the Licensed Practical Nurse today this shift.
[2020-12-07 05:57] LABS: BASOPHILS 0.1 % (0-2); EOSINOPHILS 0.6 % (0-7); HEMATOCRIT 38.3 % (36.0-48.0); HEMOGLOBIN 12.8 g/dL (12-16); IMMATURE GRANULOCYTES 1.9 % (0-5); LYMPHOCYTE ABS# 2.57 10x3/uL (1.18-3.74); LYMPHOCYTES 20.8 % (15-50); MCH 31.1 pg (26.0-34.0); MCHC 33.4 g/dL (31.0-37.0); MEAN PLATELET VOLUME 10.2 fL (7.4-10.4); NEUTROPHIL ABS# 8.35 10x3/uL (1.56-6.13); NEUTROPHILS 67.6 % (40-80); PLATELET COUNT 160 10x3/uL (130-400); RBC 4.12 10x6/uL (4.00-5.40); RDW 14.5 % (11.5-14.5); WBC 12.3 10x3/uL (4.8-10.8)
[2020-12-07 06:31] LABS: ANION GAP 7.4 mmol/L (8-16); CALCIUM 8.4 mg/dL (8.5-10.1); CARBON DIOXIDE 29.5 mmol/L (21.0-32.0); CREATININE - SERUM 0.8 mg/dL (0.6-1.3); POTASSIUM - SERUM 3.9 mmol/L (3.5-5.1)
--- NOTE | 2020-12-07 06:33 | NUR ---
PHYSICAL THERAPIST IN PATIENTS ROOM. PATIENT TAKEN DOWN TO REHAB ROOM
--- NOTE | 2020-12-07 06:35 | NUR ---
PATIENT VERY CONFUSED THIS MORNING. BED ALARM WENT OFF. PATIENT AT SIDE OF THE BED. PATIENT CALLED WITH HELP OF THIS NURSE.
--- NOTE | 2020-12-07 08:10 | NUR ---
SHE IS USING THE WHEELCHAIR TO GO TO THE BATHROOM. SHE HAS 3 BENJAMIN TO HER BACK WITH BRUISES. SHE IS A LITTLE CONFUSED AT TIMES. THE CALL LIGHT IS WITHIN REACH AND THE BED ALARM IS ON.
[2020-12-07 11:03] VITALS: BP 138/74
--- NOTE | 2020-12-07 15:00 | NUR ---
SHE IS C/O NAUSEA, SPITTING UP SOME. TUMS GIVEN. WILL MONITOR.
--- NOTE | 2020-12-07 15:49 | NUR ---
SHE IS STILL C/O N/V. SHE DID VOMIT ABOUT 30 CC IN THE FLOOR OF UNDIGESTED FOOD. PRN ZOFRAN GIVEN. SHE HAS BEEN VOIDING. HER DAUGHTER IS HERE NOW, THE PATEINT IS SAYING SHE WANTS TO LEAVE. STEPHIE JONES, WAITING FOR THE RESULTS. PRN GIVEN FOR PAIN. THE CALL LIGHT IS WITHIN REACH AND THE BED ALARM IS ON.
--- NOTE | 2020-12-07 20:00 | NUR ---
PATIENT RECEIVED SITTING UP IN BED. C/O PAIN TO RIGHT UPPER QUADRANT. PATIENT TO SPIT UPN BLUE BAG FOR EVALUATION. VITAL SIGNS & ASSESSMENT DONE. BED LOW. CALL LIGHT & BEDSIDE TABLE WITHIN REACH. WILL CONTINUE TO MONITOR.
[2020-12-07 21:18] VITALS: BP 113/68
--- NOTE | 2020-12-07 23:00 | NUR ---
PATIENT HAD COFFEE GROUND VOMIT IN BLUE BAG. STAT CBC TO BED DRAWN. WILL CONTINUE TO MONITOR. CALL LIGHT WITHIN REACH. ALARM ON.
--- NOTE | 2020-12-07 23:33 | NUR ---
LAB HERE DRAWING BLOOD FOR STAT CBC. PATIENT TOLERATING IT WELL.
[2020-12-07 23:41] LABS: BASOPHILS 0.1 % (0-2); EOSINOPHILS 0.1 % (0-7); HEMATOCRIT 38.6 % (36.0-48.0); HEMOGLOBIN 12.9 g/dL (12-16); IMMATURE GRANULOCYTES 1.6 % (0-5); LYMPHOCYTE ABS# 1.97 10x3/uL (1.18-3.74); LYMPHOCYTES 12.4 % (15-50); MCH 31.5 pg (26.0-34.0); MCHC 33.4 g/dL (31.0-37.0); MCV 94.1 fL (80.0-100.0); MEAN PLATELET VOLUME 9.7 fL (7.4-10.4); MONOCYTES 7.6 % (2-11); NEUTROPHIL ABS# 12.45 10x3/uL (1.56-6.13); NEUTROPHILS 78.2 % (40-80); PLATELET COUNT 163 10x3/uL (130-400); RDW 14.3 % (11.5-14.5)
[2020-12-07 23:42] LABS: WBC 15.9 10x3/uL (4.8-10.8)
--- NOTE | 2020-12-08 00:40 | NUR ---
PATIENT SAMPLE OF SPIT IN SPECIMEN CUP. SAME COLOR OF DR. CHAN IN SPIT. WILL CONTINUE TO MONITOR.
--- NOTE | 2020-12-08 01:22 | NUR ---
PATIENT C/O BACK PAIN. PATIENT REQUESTED TO SIT UP IN BED. ALARM ON. ZOFRAN GIVEN FOR NAUSEA. CALL LIGHT & SIDETABLE WITHIN REACH. WILL CONTINUE TO MONITOR.
--- NOTE | 2020-12-08 02:41 | NUR ---
PATIENT BACK IN BED. EYES CLOSED. BED LOW. SCDS ON. ALARM ON. CALL LIGHT WITHIN REACH. WILL CONTINUE TO MONITOR.
--- NOTE | 2020-12-08 04:22 | NUR ---
PATIENT AWAKE WENT INTO BATHROOM WHILE OTHER PATIENT BATHING. PATIENT DARK DRINKS PLACED IN HER BUCKET. PATIENT AGREED TO DRINK BOTTLED WATER. RETURNED TO LOW BED. ALARM ON. CALL LIGHT WITHIN REACH. [facility].
--- NOTE | 2020-12-08 07:48 | NUR ---
PATIENT ALERT/ORIENT. NAUSEA REMAINS. CALL INTO DR NEVES. BREAKFAST TRAY HELD. BED ALARM ON. CALL LIGHT WITHIN REACH. WILL CONTINUE TO MONITOR
--- NOTE | 2020-12-08 09:33 | NUR ---
DR NEVES INTO SEE PATIENT. NEW ORDERS RECEIVED
[2020-12-08 10:19] VITALS: BP 102/56
--- NOTE | 2020-12-08 14:18 | NUR ---
DAUGHTER IN TO VISIT WITH PATIENT. UPDATED ON NEW ORDERS AND PATIENT CARE
[2020-12-08 19:15] VITALS: BP 176/100
--- NOTE | 2020-12-08 21:00 | NUR ---
PAIN MEDICATION GIVEN HAS NOT STOPPED PATIENT ABDOMINAL PAIN AT THIS TIME. WILL CONTINUE TO MONITOR. ALARM ON. CALL LIGHT WITHIN REACH.
--- NOTE | 2020-12-08 22:24 | NUR ---
PROTONIX GIVEN & IS EFFECTIVE FOR NAUSEA & VOMITING. PATIENT HAS NOT HAD ANY EPISODE OF VOMITING AT THIS TIME. BED LOW. ALARM ON. CALL LIGHT WITHIN REACH. WILL CONTINUE TO MONITOR.
--- NOTE | 2020-12-08 23:40 | NUR ---
HEARD PT FROM NURSE DESK MOANING AND CRYING OUT IN PAIN, ASSESSED PT AND FOUND BLADDER DISTENDED. ASKED PRIMARY NURSE KAMINI WHEN LAST TIME PT VOIDED. STATED PT WAS JUST CLEANED FOR URINE INCONTINENCY. BLADDER SCANNED PT AND FOUND TO HAVE 999+ PER SCAN. IN/OUT CATH AND REMOVED 2000ML TIMO URINE. RESCANNED BLADDER BEFORE REMOVING CATH, SCAN RESULTS 32ML IN BLADDER. REMOVED CATH AND CLEANED PT. PT IS NOW RESTING COMFORTABLY. WILL RESCAN IN 4 HOURS TO CHECK RESIDUAL.
--- NOTE | 2020-12-09 02:20 | NUR ---
I have reviewed this patient and I concur with the Shift Assessment completed by the Licensed Practical Nurse today this shift.
--- NOTE | 2020-12-09 03:39 | NUR ---
PT LYING IN BED RESTING. BLADDER SCANNED 453ML RESIDUAL. PT STATES NO URGE TO URINATE. MASSAGED SUPRAPUBIC AREA AND APPLIED WARM COMPRESS. OFFERED PT TO SIT ON COMMODE. PT DENIES NEED TO URINATE. WILL MONITOR FOR NEXT HOUR TO SEE IF PT WILL BE ABLE TO VOID WITHOUT ASSISTANCE
--- NOTE | 2020-12-09 04:20 | NUR ---
BLADDER SCANNED PT 554ML RESIDUAL NOTED. ALL INTERVENTIONS EXHAUSTED. PT UNABLE TO VOID. PT C/O DISCOMFORT WITH PALPATION.
--- NOTE | 2020-12-09 04:30 | NUR ---
VERBAL CONSENT RECEIVED FROM PT FOR MARQUES PLACEMENT D/T RETENTION. PT PREPPED. USING STERILE TECHNIQUE INSERTED 16FR MARQUES CATH, INFLATED BALLOON WITH 10ML STERILE SALINE. STAT LOCK SECURED TO RIGHT THIGH. 600ML CLEAR YELLOW URINE WITH INITIAL INSERTION. EMPTIED MARQUES BAG. DATE, TIMED, INITIALED BAG AND STAT LOCK. PT TOLERATED WELL. PT RESTING COMFORTABLY.
[2020-12-09 07:37] LABS: BASOPHILS 0.1 % (0-2); EOSINOPHILS 0.7 % (0-7); HEMATOCRIT 20.2 % (36.0-48.0); IMMATURE GRANULOCYTES 1.2 % (0-5); LYMPHOCYTE ABS# 2.27 10x3/uL (1.18-3.74); LYMPHOCYTES 15.6 % (15-50); MCH 31.1 pg (26.0-34.0); MCHC 34.2 g/dL (31.0-37.0); MEAN PLATELET VOLUME 9.2 fL (7.4-10.4); MONOCYTES 7.2 % (2-11); NEUTROPHIL ABS# 10.93 10x3/uL (1.56-6.13); NEUTROPHILS 75.2 % (40-80); RBC 2.22 10x6/uL (4.00-5.40); RDW 14.2 % (11.5-14.5); WBC 14.5 10x3/uL (4.8-10.8)
[2020-12-09 07:38] LABS: HEMOGLOBIN 6.9 g/dL (12-16); PLATELET COUNT 113 10x3/uL (130-400)
[2020-12-09 07:54] LABS: CALCIUM 7.3 mg/dL (8.5-10.1); CREATININE - SERUM 0.9 mg/dL (0.6-1.3)
--- NOTE | 2020-12-11 11:08 | NUR ---
PATIENT DISCHARGED FROM REHAB AND ADMITTED TO ICU ON 12/09/20 DUE TO CHANGE IN MEDICAL CONDITION.
== END 2020-12-09 11:33 | disposition short-term general hospital (02) | DRG 552 ==
LOC: D.REHAB 17:04
PROVIDERS: ADMIT Emergency Medicine; ATTEND Emergency Medicine
DX: M54.16 Radiculopathy, lumbar region (principal); K92.2 Gastrointestinal hemorrhage, unspecified; I10 Essential (primary) hypertension; K21.9 Gastro-esophageal reflux disease without esophagitis; M19.90 Unspecified osteoarthritis, unspecified site; F17.200 Nicotine dependence, unspecified, uncomplicated; R74.01 Elevation of levels of liver transaminase levels; R33.9 Retention of urine, unspecified; R26.2 Difficulty in walking, not elsewhere classified

== ENCOUNTER 2020-12-09 11:03 | Inpatient (IN) | payer MEDICARE, BC ==
[~2020-12-09] VITALS: Ht 162.6 cm; Wt 68.0 kg
[2020-12-09] VITALS (43 sets, daily range): BP systolic 59–136; BP diastolic 31–83; BMI 20.6
[~2020-12-09 11:03] MED LIST changes: +HYDROCODON-ACE1 EA10 PO
--- NOTE | 2020-12-09 11:59 | NUR ---
REC'D TO ICU. BP 69/52. 1ST UPRBC'S INFUSING. LEVOPHED STARTED AT 5MCG/MIN. SITED 20G L WRIST. ALL MONITORING EQUIPMENT ATTACHED AND ALARMS SET.
[2020-12-09 14:54] LABS: INR 1.05 (0.85-1.17); PROTIME 12.7 SECONDS (11.6-15.0)
[2020-12-09 15:07] LABS: % SATURATION 60 % (15-55); IRON 111 ug/dl (35-150); TOTAL IRON BIND CAPACITY 182 ug/dl (260-445); UNSAT IRON BIND CAPACITY 71 ug/dl (150-375)
--- NOTE | 2020-12-09 15:52 | NUR ---
DR HERNANDEZ HERE ON ROUNDS AND HE SPOKE TO PT AND DAUGHTER AT BS.
[2020-12-09 17:53] LABS: BILIRUBIN NEGATIVE (NEGATIVE); KETONE NEGATIVE (NEGATIVE); NITRITE NEGATIVE (NEGATIVE); UROBILINOGEN NORMAL mg/dL (< 2)
[2020-12-09 17:56] LABS: BACTERIA FEW HPF (NONE SEEN); WHITE CELLS - URINE 0-5 HPF (0-4)
[2020-12-09 18:06] LABS: RETIC 2.08 % (0.45-2.28)
[2020-12-09 18:17] LABS: HEMATOCRIT 28.4 % (36.0-48.0); HEMOGLOBIN 9.4 g/dL (12-16)
[2020-12-09 18:19] LABS: CARBON DIOXIDE 20.7 mmol/L (21.0-32.0); CREATININE - SERUM 0.9 mg/dL (0.6-1.3); POTASSIUM - SERUM 3.7 mmol/L (3.5-5.1)
--- NOTE | 2020-12-09 21:26 | NUR ---
Signed consent for esophagogastroduodenoscopy placed in patient chart.
[2020-12-10] VITALS (90 sets, daily range): BP systolic 84–132; BP diastolic 38–87; Ht 162.6 cm; Wt 68.0 kg
[2020-12-10 00:47] LABS: HEMATOCRIT 26.3 % (36.0-48.0); HEMOGLOBIN 8.9 g/dL (12-16)
[2020-12-10 04:44] LABS: BASOPHILS 0.1 % (0-2); EOSINOPHILS 1.4 % (0-7); HEMOGLOBIN 8.6 g/dL (12-16); IMMATURE GRANULOCYTES 1.1 % (0-5); LYMPHOCYTE ABS# 3.19 10x3/uL (1.18-3.74); MCHC 33.1 g/dL (31.0-37.0); MEAN PLATELET VOLUME 9.7 fL (7.4-10.4); MONOCYTES 8.5 % (2-11); NEUTROPHIL ABS# 11.73 10x3/uL (1.56-6.13); NEUTROPHILS 69.9 % (40-80); PLATELET COUNT 113 10x3/uL (130-400); RDW 18.7 % (11.5-14.5); WBC 16.8 10x3/uL (4.8-10.8)
[2020-12-10 04:47] LABS: MCV 87.5 fL (80.0-100.0); RBC 2.97 10x6/uL (4.00-5.40)
--- NOTE | 2020-12-10 06:12 | NUR ---
Shift summary: Levophed drip continues at 7.5 mcg. Chronic pain well controlled with prn [place] x 1. No episodes of hematemesis or sign of bleed. See flowsheets for details.
--- NOTE | 2020-12-10 08:12 | NUR ---
CRITICAL HGB CALLED FROM LAB OF 6.9
[2020-12-10 08:47] LABS: ALBUMIN 1.9 g/dL (3.4-5.0); ANION GAP 8.8 mmol/L (8-16); BILIRUBIN - TOTAL 0.63 mg/dL (0.2-1.3); CALCIUM 7.1 mg/dL (8.5-10.1); CARBON DIOXIDE 21.7 mmol/L (21.0-32.0); CREATININE - SERUM 0.8 mg/dL (0.6-1.3); POTASSIUM - SERUM 3.5 mmol/L (3.5-5.1); PROTEIN - SERUM 4.3 g/dL (6.4-8.2)
[2020-12-10 08:55] LABS: HEMATOCRIT 26.4 % (36.0-48.0); HEMOGLOBIN 8.7 g/dL (12-16)
--- NOTE | 2020-12-10 09:07 | NUR ---
LAB CALLED AND AMMENDED HGB RESULT. NO CRITICAL WITH RE-DRAW
--- NOTE | 2020-12-10 10:21 | NUR ---
PT REPORTS LOWER BACK PAIN RADIATING TO LLE AND IS IN BED MOANING, CRYING, AND REPORTING SEVERE PAIN RATED 10/10. DR HOWE CALLED AND INFORMED.
--- NOTE | 2020-12-10 10:29 | NUR ---
NURSE CALLED INTO ROOM REQUESTING PAIN. PT STATES SHE DOES NOT TAKE ANYTHING AT HOME EXCEPT FOR TYLENOL AND IBUPROFEN HOWEVER THIS PAIN IS UNBEARABLE AND RATES 10/10.
[2020-12-10 12:38] LABS: HEMOGLOBIN 8.5 g/dL (12-16)
--- NOTE | 2020-12-10 15:14 | NUR ---
PATIENT PAIN FREE AT THIS POINT AND IN [facility] AT BEDSIDE. QUESTIONS ANSWERED AND NO DISTRESS NOTED.
--- NOTE | 2020-12-10 17:22 | NUR ---
MAMADOU RUTHERFORD PAGED TO NOTIFY OF CONSULT FOR 9137 FOR LEFT KNEE PAIN.
--- NOTE | 2020-12-10 17:55 | NUR ---
ORTHO CALLED BACK AND NOTIFIED OF CONSULT FOR KIRK.
[2020-12-10 18:16] LABS: HEMATOCRIT 25.1 % (36.0-48.0); HEMOGLOBIN 8.2 g/dL (12-16)
[2020-12-11] VITALS (89 sets, daily range): BP systolic 78–122; BP diastolic 0–71
--- NOTE | 2020-12-11 01:09 | NUR ---
Spoke to Ms. Melchor in the lab and she notified me that the H&H Q6HRS order was entered incorrectly as "routine" causing an issue with the collection times. They will fix the times and collect soon.
[2020-12-11 03:48] LABS: BASOPHILS 0.1 % (0-2); EOSINOPHILS 0.9 % (0-7); HEMATOCRIT 25.1 % (36.0-48.0); HEMOGLOBIN 8.1 g/dL (12-16); IMMATURE GRANULOCYTES 0.8 % (0-5); LYMPHOCYTE ABS# 2.07 10x3/uL (1.18-3.74); LYMPHOCYTES 16.4 % (15-50); MCH 28.8 pg (26.0-34.0); MCHC 32.3 g/dL (31.0-37.0); MCV 89.3 fL (80.0-100.0); MONOCYTES 8.5 % (2-11); NEUTROPHIL ABS# 9.27 10x3/uL (1.56-6.13); NEUTROPHILS 73.3 % (40-80); PLATELET COUNT 106 10x3/uL (130-400); RBC 2.81 10x6/uL (4.00-5.40); RDW 18.9 % (11.5-14.5); WBC 12.6 10x3/uL (4.8-10.8)
[2020-12-11 04:06] LABS: ALBUMIN 1.8 g/dL (3.4-5.0); ANION GAP 10.2 mmol/L (8-16); BILIRUBIN - TOTAL 0.65 mg/dL (0.2-1.3); CALCIUM 7.1 mg/dL (8.5-10.1); CARBON DIOXIDE 23.9 mmol/L (21.0-32.0); CREATININE - SERUM 0.8 mg/dL (0.6-1.3); POTASSIUM - SERUM 3.1 mmol/L (3.5-5.1); PROTEIN - SERUM 4.4 g/dL (6.4-8.2)
--- NOTE | 2020-12-11 09:27 | NUR ---
R WRIST IV LEAKING AND HURTING. REMOVED, TIP INTACT. NEW PIV STARTED TO R FA X 1 ATTEMPT, 22G. TOLERATED WELL.
[2020-12-11 09:32] LABS: HEMATOCRIT 22.9 % (36.0-48.0); HEMOGLOBIN 7.6 g/dL (12-16)
--- NOTE | 2020-12-11 13:33 | NUR ---
UP TO CHAIR, GRANDDAUGTHER AT BEDSIDE. ANESTHESIA UPDATED THEM WITH APPROX TIME OF EGD.
--- NOTE | 2020-12-11 14:41 | NUR ---
C/O PAIN AT IV SITE TO L WRIST. REMOVED, TIP INTACT.
[2020-12-11 15:36] LABS: HEMATOCRIT 24.8 % (36.0-48.0); HEMOGLOBIN 8.1 g/dL (12-16)
--- NOTE | 2020-12-11 15:40 | NUR ---
PLACED BACK TO BED SAFELY AND DR. HERNANDEZ AND GI LAB CREW HERE PERFORMING EGD.
[2020-12-11 21:44] LABS: HEMATOCRIT 23.4 % (36.0-48.0); HEMOGLOBIN 7.7 g/dL (12-16)
[2020-12-12] VITALS (33 sets, daily range): BP systolic 89–122; BP diastolic 42–73
[2020-12-12 04:51] LABS: BASOPHILS 0 % (0-2); EOSINOPHILS 0.9 % (0-7); IMMATURE GRANULOCYTES 0.5 % (0-5); LYMPHOCYTE ABS# 1.11 10x3/uL (1.18-3.74); LYMPHOCYTES 13.9 % (15-50); MCH 29.3 pg (26.0-34.0); MCHC 32.7 g/dL (31.0-37.0); MCV 89.4 fL (80.0-100.0); MEAN PLATELET VOLUME 9.4 fL (7.4-10.4); MONOCYTES 7.4 % (2-11); NEUTROPHILS 77.3 % (40-80); PLATELET COUNT 125 10x3/uL (130-400); RBC 2.46 10x6/uL (4.00-5.40); RDW 18.6 % (11.5-14.5)
[2020-12-12 04:54] LABS: ALBUMIN 1.5 g/dL (3.4-5.0); ALKALINE PHOSPHATASE 43 U/L (30-120); BILIRUBIN - TOTAL 0.34 mg/dL (0.2-1.3); CALCIUM 7.3 mg/dL (8.5-10.1); CARBON DIOXIDE 24.4 mmol/L (21.0-32.0); CHLORIDE - SERUM 107 mmol/L (98-107); CREATININE - SERUM 0.7 mg/dL (0.6-1.3); POTASSIUM - SERUM 3.2 mmol/L (3.5-5.1); PROTEIN - SERUM 4.1 g/dL (6.4-8.2); SODIUM 138 mmol/L (136-145); UREA NITROGEN 6 mg/dL (7-18); eGFR NON AFRICAN AMERICAN 87 mL/min (90-120)
[2020-12-12 05:02] LABS: ALT (SGPT) 31 U/L (10-68); CALC OSMOLALITY 273 mosm/kg (275-300); GLUCOSE 97 mg/dL (74-106)
[2020-12-12 05:07] LABS: HEMOGLOBIN 7.2 g/dL (12-16)
--- NOTE | 2020-12-12 07:23 | NUR ---
UPDATE OVERNIGHT STATUS, OFF LEVO, WILL BE GETTING BLOOD GIVEN TO IGOR.
--- NOTE | 2020-12-12 10:30 | NUR ---
UP TO CHAIR AT THIS TIME. C/O PAIN IN LEG AND USES ICE FOR THIS. REPORTS IT WORKS BETTER FOR HER L LEG PAIN THAN ANYTHING ELSE.
--- NOTE | 2020-12-12 11:16 | NUR ---
BACK TO BED SAFELY, 2 PEOPLE ASSIST. BLOOD INITIATED.
--- NOTE | 2020-12-12 12:47 | NUR ---
Nutrition follow-up: Pt NPO for EGD today Diet order has been clear liquids Labs reviewed Wt: 150# Pt will need nutrition support started within 24 hours if diet unable to advance. Recommend for short-term support, ProcalAmine PPN @ 75 ml/hr RDN follow-up: 12/14/20
--- NOTE | 2020-12-12 12:53 | NUR ---
DR. RADHA LEIJA. ORDERS TO TRANSFER.
--- NOTE | 2020-12-12 13:26 | NUR ---
BUTT PASTE APPLIED TO BLANCHABLE RED AREA ON BOTTOM. HAS SORE AREA ON BUTTOCK WELL, BUT DOES NOT APPEAR TO BE A PRESSURE ULCER.
--- NOTE | 2020-12-12 15:36 | NUR ---
REPORT GIVEN AND TRANSPORTED TO MED SURG.
--- NOTE | 2020-12-12 19:45 | NUR ---
RECEIVED BEDSIDE REPORT. PT LAYING IN BED A&O X4. PIV TO RIGHT FOREARM PATENT AND INFUSING, NO REDNESS OR SWELLING. PIV TO RIGHT HAND, PATENT AND S/L, NO REDNESS OR SWELLING. INCISION TO LOWER BACK, BENJAMIN IN PLACE, OPEN TO AIR, HEALING WELL. SKIN TEAR TO LEFT BUTTOCK. MARQUES IN PLACE, DRAINING TO GRAVITY, STATLOCK IN PLACE. PT ABLE TO AMBULATE WITH ASSIST. EDUCATED PT ON CL AND NEEDS, VERBALIZED UNDERSTANDING. BED LOW, CL IN REACH.
[2020-12-13 01:49] LABS: HEMATOCRIT 29.5 % (36.0-48.0); HEMOGLOBIN 9.7 g/dL (12-16)
[2020-12-13 04:00] VITALS: BP 100/53
[2020-12-13 07:35] LABS: BASOPHILS 0.1 % (0-2); EOSINOPHILS 1.6 % (0-7); HEMATOCRIT 29.3 % (36.0-48.0); HEMOGLOBIN 9.7 g/dL (12-16); IMMATURE GRANULOCYTES 0.4 % (0-5); LYMPHOCYTE ABS# 1.03 10x3/uL (1.18-3.74); LYMPHOCYTES 13.4 % (15-50); MCH 29.7 pg (26.0-34.0); MCHC 33.1 g/dL (31.0-37.0); MCV 89.6 fL (80.0-100.0); MEAN PLATELET VOLUME 9.4 fL (7.4-10.4); MONOCYTES 6.9 % (2-11); NEUTROPHIL ABS# 5.98 10x3/uL (1.56-6.13); NEUTROPHILS 77.6 % (40-80); PLATELET COUNT 107 10x3/uL (130-400); RDW 17.7 % (11.5-14.5); WBC 7.7 10x3/uL (4.8-10.8)
[2020-12-13 07:37] LABS: RBC 3.27 10x6/uL (4.00-5.40)
[2020-12-13 07:43] LABS: ALBUMIN 1.5 g/dL (3.4-5.0); BILIRUBIN - TOTAL 0.41 mg/dL (0.2-1.3); CALCIUM 7.7 mg/dL (8.5-10.1); CARBON DIOXIDE 27.3 mmol/L (21.0-32.0); CREATININE - SERUM 0.8 mg/dL (0.6-1.3); PROTEIN - SERUM 4.3 g/dL (6.4-8.2)
[2020-12-13 07:44] LABS: ANION GAP 6.4 mmol/L (8-16); POTASSIUM - SERUM 3.7 mmol/L (3.5-5.1)
[2020-12-13 09:11] VITALS: BP 108/57
[2020-12-13 12:58] VITALS: BP 108/54
[2020-12-13 13:30] LABS: HEMATOCRIT 33.1 % (36.0-48.0); HEMOGLOBIN 10.9 g/dL (12-16)
[2020-12-13 16:56] VITALS: BP 99/52
[2020-12-13 19:39] LABS: HEMATOCRIT 30.1 % (36.0-48.0)
--- NOTE | 2020-12-13 19:45 | NUR ---
RECEIVED BEDSIDE REPORT. PT LAYING IN BED A&O X4. PIV TO RIGHT WRIST, PATENT AND S/L, NO REDNESS OR SWELLING. PIV TO RIGHT FOREARM PATENT AND INFUSING, NO REDNESS OR SWELLING. INCISION TO LOWER BACK, BENJAMIN X3. LEFT BUTTOCK ABRASION, DRSG C/D/I. PT ABLE TO AMBULATE WITH ASSIST. BED LOW, ALARM ON, CL IN REACH.
[2020-12-13 21:36] VITALS: BP 91/47
[2020-12-14 04:00] VITALS: BP 97/55
[2020-12-14 06:54] LABS: ALBUMIN 1.5 g/dL (3.4-5.0); ANION GAP 8.7 mmol/L (8-16); BILIRUBIN - TOTAL 0.21 mg/dL (0.2-1.3); CALCIUM 7.7 mg/dL (8.5-10.1); CARBON DIOXIDE 26.7 mmol/L (21.0-32.0); CREATININE - SERUM 0.8 mg/dL (0.6-1.3); POTASSIUM - SERUM 3.4 mmol/L (3.5-5.1); PROTEIN - SERUM 4.2 g/dL (6.4-8.2)
[2020-12-14 07:59] LABS: BASOPHILS 0.4 % (0-2); EOSINOPHILS 2.2 % (0-7); HEMOGLOBIN 10.8 g/dL (12-16); IMMATURE GRANULOCYTES 0.4 % (0-5); LYMPHOCYTE ABS# 1.08 10x3/uL (1.18-3.74); LYMPHOCYTES 19.5 % (15-50); MCH 29.4 pg (26.0-34.0); MCHC 32.7 g/dL (31.0-37.0); MCV 89.9 fL (80.0-100.0); MEAN PLATELET VOLUME 9.7 fL (7.4-10.4); MONOCYTES 5.8 % (2-11); NEUTROPHIL ABS# 3.98 10x3/uL (1.56-6.13); NEUTROPHILS 71.7 % (40-80); PLATELET COUNT 115 10x3/uL (130-400); RBC 3.67 10x6/uL (4.00-5.40); RDW 17.8 % (11.5-14.5); WBC 5.5 10x3/uL (4.8-10.8)
[2020-12-14 08:38] VITALS: BP 110/56
[2020-12-14 12:34] VITALS: BP 107/57
--- NOTE | 2020-12-14 15:33 | NUR ---
Nutrition Follow-up: Diet: Regular [facility] Soft PO intake: 25% x last 3 meals (clear liquid). Diet advanced to regular today. She was eating lunch at time of RD visit. She had eaten most of her lunch tray. She really likes the food here and was very complimentary. States that her appetite is good now that diet has been advanced. She feels that she is tolerating diet advancement well. Last BM: 12/08/20 Wt: 150# (12/10/20) Meds noted: probiotics, abx, D51/2NS@50 Labs noted: K 3.4(L), alb 1.5(L) Recommend continue regular [facility] soft diet as tolerated/or per TIE MILL OPERATOR recommendations. RD will follow-up 12/18/20.
[2020-12-14 17:30] VITALS: BP 112/50
--- NOTE | 2020-12-14 19:45 | NUR ---
RECEIVED BEDSIDE REPORT. PT LAYING IN BED A&O X4. PIV TO LEFT FOREARM PATENT AND INFUSING, NO REDNESS OR SWELLING. INCISION TO LOWER BACK, OPEN TO AIR. EXCORIATION TO LEFT LOWER BUTTOCKS, DRSG C/D/I. PT ABLE TO AMBULATE WITH MOD ASSIST. EDUCATED ON CL AND NEEDS, VERBALIZED UNDERSTANDING. BED LOW, CL IN REACH.
[2020-12-14 21:19] VITALS: BP 106/51
--- NOTE | 2020-12-14 23:08 | NUR ---
FAMILY C/O PT BEING TIRED ALL DAY AND BELIEVE IT IS DUE TO THE AMBIEN GIVEN LAST NIGHT, WILL HOLD AMBIEN TONIGHT AND ASSES IF PT SLEEPS WELL.
[2020-12-15 05:46] VITALS: BP 150/60
[2020-12-15 06:29] LABS: ALBUMIN 1.6 g/dL (3.4-5.0); ALKALINE PHOSPHATASE 46 U/L (30-120); ALT (SGPT) 18 U/L (10-68); CALCIUM 7.5 mg/dL (8.5-10.1); CARBON DIOXIDE 28.7 mmol/L (21.0-32.0); CHLORIDE - SERUM 105 mmol/L (98-107); CREATININE - SERUM 0.7 mg/dL (0.6-1.3); GLUCOSE 102 mg/dL (74-106); POTASSIUM - SERUM 3.6 mmol/L (3.5-5.1); PROTEIN - SERUM 4.5 g/dL (6.4-8.2); SODIUM 137 mmol/L (136-145); eGFR NON AFRICAN AMERICAN 87 mL/min (90-120)
[2020-12-15 06:30] LABS: BASOPHILS 0.2 % (0-2); CALC OSMOLALITY 270 mosm/kg (275-300); EOSINOPHILS 2.2 % (0-7); HEMATOCRIT 29.6 % (36.0-48.0); HEMOGLOBIN 9.7 g/dL (12-16); IMMATURE GRANULOCYTES 0.2 % (0-5); LYMPHOCYTE ABS# 0.91 10x3/uL (1.18-3.74); LYMPHOCYTES 17.8 % (15-50); MCH 29.5 pg (26.0-34.0); MCHC 32.8 g/dL (31.0-37.0); MEAN PLATELET VOLUME 9.3 fL (7.4-10.4); MONOCYTES 7.4 % (2-11); NEUTROPHIL ABS# 3.69 10x3/uL (1.56-6.13); NEUTROPHILS 72.2 % (40-80); RBC 3.29 10x6/uL (4.00-5.40); RDW 17.8 % (11.5-14.5); UREA NITROGEN 5 mg/dL (7-18); WBC 5.1 10x3/uL (4.8-10.8)
[2020-12-15 06:46] LABS: PLATELET COUNT 141 10x3/uL (130-400)
[2020-12-15 09:15] VITALS: BP 127/67
[2020-12-15 13:50] VITALS: BP 109/57
[2020-12-15 18:34] VITALS: BP 109/54
--- NOTE | 2020-12-15 19:39 | NUR ---
PATIENT RESTING IN BED WITH NO S/S OF DISTRESS. GUEST AT BEDSIDE. PATIENT DENIES NEEDS AT THIS TIME. IV INFUSING TO LEFT FA.NO REDNESS, SWELLING, OR PAIN NOTED. BED IN LOWEST POSITION AND CALL LIGHT IN REACH. ENCOURAGED PATIENT TO CALL WITH NEEDS.
[2020-12-15 20:00] VITALS: BP 113/54
--- NOTE | 2020-12-15 21:06 | NUR ---
ADMINISTERED MEDS PER ORDERS. PATIENT HOWARD WELL. ENCOURAGED TO CALL WITH NEEDS.
[2020-12-16] VITALS: BP 119/65
[2020-12-16 04:00] VITALS: BP 118/58
[2020-12-16 06:50] LABS: BASOPHILS 0 % (0-2); EOSINOPHILS 0 % (0-7); HEMATOCRIT 31.6 % (36.0-48.0); HEMOGLOBIN 10.4 g/dL (12-16); LYMPHOCYTE ABS# 0.45 10x3/uL (1.18-3.74); MCH 29.5 pg (26.0-34.0); MCHC 32.9 g/dL (31.0-37.0); MCV 89.8 fL (80.0-100.0); MEAN PLATELET VOLUME 9.4 fL (7.4-10.4); NEUTROPHIL ABS# 3.59 10x3/uL (1.56-6.13); RBC 3.52 10x6/uL (4.00-5.40); RDW 17.9 % (11.5-14.5); WBC 4.1 10x3/uL (4.8-10.8)
[2020-12-16 07:02] LABS: PLATELET COUNT 176 10x3/uL (130-400)
[2020-12-16 07:16] LABS: ALBUMIN 1.8 g/dL (3.4-5.0); ANION GAP 10.5 mmol/L (8-16); BILIRUBIN - TOTAL 0.2 mg/dL (0.2-1.3); CARBON DIOXIDE 24.4 mmol/L (21.0-32.0); CREATININE - SERUM 0.8 mg/dL (0.6-1.3); POTASSIUM - SERUM 3.9 mmol/L (3.5-5.1); PROTEIN - SERUM 5.1 g/dL (6.4-8.2)
--- NOTE | 2020-12-16 07:45 | NUR ---
PATIENT SITTING UP IN CHAIR AT THIS TIME. IV INTACT. CALL LIGHT WITHIN REACH. FAMILY AT BEDSIDE.
[2020-12-16 10:07] VITALS: BP 119/63
--- NOTE | 2020-12-16 13:50 | NUR ---
PATIENT AMBULATING IN FINN WITH PT.
[2020-12-16 14:15] VITALS: BP 115/62
[2020-12-16 18:03] VITALS: BP 122/58
--- NOTE | 2020-12-16 18:06 | NUR ---
PATIENT IN BED WITH EYES CLOSED RESTING QUIETLY. CALL LIGHT WITHIN REACH. FAMILY AT BEDSIDE.
[2020-12-16 20:00] VITALS: BP 128/61
[2020-12-17 04:00] VITALS: BP 122/53
[2020-12-17 05:54] LABS: BASOPHILS 0 % (0-2); EOSINOPHILS 0 % (0-7); HEMATOCRIT 30.6 % (36.0-48.0); HEMOGLOBIN 9.9 g/dL (12-16); IMMATURE GRANULOCYTES 0.2 % (0-5); LYMPHOCYTE ABS# 0.61 10x3/uL (1.18-3.74); LYMPHOCYTES 9.7 % (15-50); MCH 29.1 pg (26.0-34.0); MCHC 32.4 g/dL (31.0-37.0); MEAN PLATELET VOLUME 9.7 fL (7.4-10.4); MONOCYTES 2.5 % (2-11); NEUTROPHIL ABS# 5.54 10x3/uL (1.56-6.13); NEUTROPHILS 87.6 % (40-80); PLATELET COUNT 200 10x3/uL (130-400); RDW 18.2 % (11.5-14.5)
[2020-12-17 06:10] LABS: WBC 6.3 10x3/uL (4.8-10.8)
[2020-12-17 06:19] LABS: ALBUMIN 1.8 g/dL (3.4-5.0); ANION GAP 10.8 mmol/L (8-16); BILIRUBIN - TOTAL 0.14 mg/dL (0.2-1.3); CALCIUM 7.8 mg/dL (8.5-10.1); CARBON DIOXIDE 25.3 mmol/L (21.0-32.0); CREATININE - SERUM 0.8 mg/dL (0.6-1.3); POTASSIUM - SERUM 4.1 mmol/L (3.5-5.1); PROTEIN - SERUM 4.9 g/dL (6.4-8.2)
[2020-12-17 08:35] VITALS: BP 119/59
--- NOTE | 2020-12-17 09:01 | NUR ---
SITTING UP IN CHAIR,WITHOUT DISTRESS.
--- NOTE | 2020-12-17 10:43 | MORECARE ---
CASE MANAGEMENT DISCHARGE SUMMARY PATIENT: MARIXA RUSSELL UNIT: [id number] ADM DATE: 12/09/20 AGE: 75 : 47 SEX: F ROOM/BED: .[facility] AUTHOR: TED MORALES PHYSICIAN: REFERRING PHYSICIAN: JULIEN NEVES MD DATE OF SERVICE: 12/17/20 Case Management Discharge Planning Summary DCP REVIEW SUMMARY ANTICIPATED D/C DATE: EXPECTED LOS : CASE STATUS: DCP Initiated INITIAL REVIEW: 12/09/2020 INITIAL REVIEWER: Anuja Mendez FINAL DISCHARGE DISPOSITION: : FINAL REVIEWER: FINAL REVIEW DATE: DCP Focus Questions & Answers DCP Screen QUESTION: ANSWER High Risk Factors: : Readmission within past 30 days DCP Evaluation QUESTION: ANSWER Patient's current cognitive status: : *Oriented to person, place, situation, time and present Patient gives permission to discuss discharge plans with: (name, relationship and number) : MARLEE COSTA, Patient's ability to cope with chronic illness : c. Inadequate (3+ ED visits in 6 mos., readmits within 30 days, 2+ hospital admissions in 1 yr.) Functional screen assessment: : New onset of change in functional mobility Family / Caregiver's ability to cope with chronic illness: : a. Adequate (ability to meet patient's medical needs, ensures patient attends medical appts.) Physical Status: : Independent with ADL's Living Arrangements: : Home Alone with Support Baseline cognitive status: : *Oriented to person, place, situation, time and present Medication Management: : Patient states can read and understand medication labels Would patient like to participate in any Care Coordination programs (if applicable): : Not applicable Mental health screen: : No mental health history Psychosocial status: : Adult with physical limitations DCP Re-evaluation QUESTION: ANSWER Would patient like to participate in any Care Coordination programs (if applicable): : Not applicable PATIENT: MARIXA RUSSELL ENCOUNTER: [id number] MEDICAL RECORD#: [id number] ADMISSION DATE: 12/09/2020 DISCHARGE DATE: ATTENDING MD: HORACE DUENAS : AGE: 75 MARITAL STATUS: S DC PLAN ID: [id number] FACILITY: [facility] PRINTED ON: 12/17/20 10:43 CT All edits/amendments must be made on the electronic document DICTATION DATE: 12/17/20 1043 DISTRIBUTOR SALES CONSULTANT: MARTHA 12/17/20 1043 RPT#: [id number] DC DATE: STATUS: ADM IN [facility] [address] [place] [address] END OF REPORT
--- NOTE | 2020-12-17 11:32 | NUR ---
PATIENT SITTING UP IN CHAIR AT BEDSIDE, DAUGHTER AT BEDSIDE. NO SIGNS OF DISTRESS. CL IN [facility], PATIENT STATED SHE WAS GETTING BACK INTO BED AFTER USING RESTROOM. ADMINISTERED PRN PAIN MEDICATION. CONTINUE WITH PLAN OF CARE
[2020-12-17 12:52] VITALS: BP 132/77
--- NOTE | 2020-12-17 12:57 | NUR ---
OT NOTE: PT COMPLETED TOILETING TASKS WITH CGA. PT COMPLETED TOILET HYGIENE WITH SBA-CGA. PT COMPLETED HAND WASHING AT SINK LEVEL WITH SBA. PT COMPLETED MISAEL-DOFF SOCKS WITH SPV-I. PT COMPLETED ADL MOBILITY WITH CGA. [id number] THANK YOU,AGATA WALKER
[2020-12-17] MEDS ORDERED: PROTONIX40 MG PO (15:57)
[2020-12-17] MEDS ORDERED: CARAFATE1 G PO (15:59)
[2020-12-17] MEDS ORDERED: MIRALAX17 GM PO (15:59)
--- NOTE | 2020-12-18 14:47 | MORECARE ---
CASE MANAGEMENT DISCHARGE SUMMARY PATIENT: MARIXA RUSSELL UNIT: [id number] ADM DATE: 12/09/20 AGE: 75 : 47 SEX: F ROOM/BED: D.2238 AUTHOR: ANDREW,DOC PHYSICIAN: REFERRING PHYSICIAN: JULIEN NEVES MD DATE OF SERVICE: 12/18/20 Case Management Discharge Planning Summary COMMENTS ENTERED DATE: 12/17/20 10:40 CT COMMENT TYPE: Discharge Planning REVIEWER: Anuja Mendez CM met with patient and her daughter Angelika at bedside after obtaining verbal consent. CM discussed availability / needs of home health, REHAB and medical equipment. Daughter states plan is for patient to dc tohome with her and she will need home health and medical equipment. [facility] and [facility]. Patient will need walker, wedge, and shower chair. She will be staying with her daughter at [address] [place], [place] [id number]. Angelika's phone number is [phone]. Patient would like to dc to home today if okay with providers. I will get home health and equipment set up today. CM to follow and assist as needed. DCP REVIEW SUMMARY ANTICIPATED D/C DATE: EXPECTED LOS : CASE STATUS: DCP Initiated INITIAL REVIEW: 12/09/2020 INITIAL REVIEWER: Anuja Mendez FINAL DISCHARGE DISPOSITION: : FINAL REVIEWER: FINAL REVIEW DATE: DCP Focus Questions & Answers DCP Screen QUESTION: ANSWER High Risk Factors: : Readmission within past 30 days DCP Evaluation QUESTION: ANSWER Patient's current cognitive status: : *Oriented to person, place, situation, time and present Patient gives permission to discuss discharge plans with: (name, relationship and number) : MARLEE COSTA, Patient's ability to cope with chronic illness : c. Inadequate (3+ ED visits in 6 mos., readmits within 30 days, 2+ hospital admissions in 1 yr.) Functional screen assessment: : New onset of change in functional mobility Family / Caregiver's ability to cope with chronic illness: : a. Adequate (ability to meet patient's medical needs, ensures patient attends medical appts.) Physical Status: : Independent with ADL's Living Arrangements: : Home Alone with Support Baseline cognitive status: : *Oriented to person, place, situation, time and present Medication Management: : Patient states can read and understand medication labels Would patient like to participate in any Care Coordination programs (if applicable): : Not applicable Mental health screen: : No mental health history Psychosocial status: : Adult with physical limitations DCP Re-evaluation QUESTION: ANSWER Would patient like to participate in any Care Coordination programs (if applicable): : Not applicable PROVIDER NETWORKING REVIEW DATE: 12/17/2020 SERVICE TYPE: Home Health Care REVIEWER: Anuja Mendez REVIEW DATE: 12/17/2020 SERVICE TYPE: Durable Medical Equipment REVIEWER: Anuja Mendez PROVIDER: FINAL PROVIDER? : FINAL DATE/TIME: CT PATIENT: MARIXA RUSSELL ENCOUNTER: [id number] MEDICAL RECORD#: [id number] ADMISSION DATE: 12/09/2020 DISCHARGE DATE: 12/17/2020 ATTENDING MD: HORACE DUENAS : AGE: 75 MARITAL STATUS: S DC PLAN ID: [id number] FACILITY: [facility] PRINTED ON: 12/18/20 14:47 CT All edits/amendments must be made on the electronic document DICTATION DATE: 12/18/201446 ASSET MANAGEMENT ANALYST: DM 12/18/201446 RPT#: [id number] DC DATE:12/17/20 STATUS: DIS IN [facility] [address] [place] [address] END OF REPORT
--- NOTE | 2020-12-18 14:52 | OP ---
PATIENT NAME: MARIXA RUSSELL MEDICAL RECORD: [id number] :49 LOCATION:D.[facility] [id number] ADMISSION DATE:12/09/20 SURGEON: LORENA HERNANDEZ MD DATE OF OPERATION: 12/11/2020 PREOPERATIVE DIAGNOSIS: Upper gastrointestinal bleeding. POSTOPERATIVE DIAGNOSES: 1. Upper gastrointestinal bleeding with antral bile reflux and gastritis. 2. Grade II esophageal varices. 3. Severe distal hemorrhagic esophagitis. 4. No evidence of ongoing bleeding. 5. 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 6. Moderate hiatal hernia. PROCEDURE: Esophagogastroduodenoscopy with antral biopsy. SURGEON: Lorena Hernandez MD AGING DEPARTMENT SUPERVISOR: None. BLOOD LOSS: Minimal. ANESTHESIA: IV sedation. The family, who I spoke to after the procedure, knows of nothing that would cause the patient to have liver disease. There was no ongoing bleeding. There was evidence of recent bleeding however. DESCRIPTION OF PROCEDURE: The patient was seen in her ICU room. IV sedation was induced by the anesthesia staff. A bite block was inserted. A gastroscope was inserted into the mouth. It was advanced easily into the hypopharynx. Esophagus was easily intubated as were the stomach and duodenum. Upon withdrawal, retroflexed and angulus views were obtained. Antral biopsies were obtained. The scope was then withdrawn under direct vision. There was a good bit of bile reflux gastritis through the pylorus, I think this accounts for the diffuse edema that I saw on the antrum of the stomach. In the stomach and in the duodenum, I saw no evidence of ulceration. No evidence of erosions. In the esophagus, there were grade I to II esophageal varices throughout the middle third and lower third of the esophagus. There was severe esophagitis in the distal 1 to 2 inches of the esophagus. There were ulcerations and fissuring. Additionally, there was an area of esophagitis that include an area over a varix and it appeared that the patient may have had some bleeding. There was what appeared to be an arteriovenous malformation at this site and this may have bled. Fortunately, the patient did not have exsanguinating variceal bleeding. I have recommended that the patient stay on a proton pump inhibitor for now. We need to workup her liver disease. She likely needs to be on a nonselective beta erasmo if her blood pressure and heart rate and frailty can tolerate that. OPERATIVE REPORT [id number] YVONNEWILLISMARIXA TRANSINT:[id number] Voice Confirmation ID: [id number] DOCUMENT ID: [id number] LORENA HERNANDEZ MD at 1452 CC: [id number] DICTATION DATE: 12/12/20 0846 RAIMANN MACHINE OPERATOR: 12/12/20 1242 DIS IN 12/17/20 [place] [id number] [place] [id number]
== END 2020-12-17 17:16 | disposition home or self-care (01) | DRG 368 ==
LOC: D.ICU 11:03 → D.MS 11:03
PROVIDERS: Family Medicine; Surgery; ADMIT Emergency Medicine; ATTEND Emergency Medicine
PROC: 0D968ZX Drainage of Stomach, Via Natural or Artificial Opening Endoscopic, Diagnostic (ICD-10-PCS; principal; 2020-12-11 15:15)
PROC: 3E0U33Z Introduction of Anti-inflammatory into Joints, Percutaneous Approach (ICD-10-PCS; 2020-12-15)
DX: K21.01 Gastro-esophageal reflux disease with esophagitis, with bleeding (principal); K29.71 Gastritis, unspecified, with bleeding; I85.01 Esophageal varices with bleeding; D62 Acute posthemorrhagic anemia; I10 Essential (primary) hypertension; K64.9 Unspecified hemorrhoids; Z72.0 Tobacco use; M25.562 Pain in left knee; E87.6 Hypokalemia

== ENCOUNTER → 2021-01-01 09:00 | Day surgery (SDC) | payer MEDICARE, BC ==
[2020-12-10 10:38] VITALS: BMI 25.7
--- NOTE | ~2021-01-01 | HEMODYNAMI ---
PATIENT:MARIXA RUSSELL MEDICAL RECORD: [id number] : 49 [id number] ADMISSION DATE: 01/01/21 Generatedon:110:13 Patient name: MARIXA RUSSELL Patient #: [id number] SSN: : 1945 Date of study: 01/01/2021 Page: Of Hemodynamic Procedure Report Patient Data Patient Demographics Procedure consent was obtained First Name: MARIXA Gender: Female Last Name: YVONNE : 1945 Patient #: [id number] Age: 75 year(s) Race: Unknown Additional ID: [id number] Contact details Address: [place] [address] State: [place] City: [place] Zip code: [address] Past Medical History Allergies Allergen Reaction Date Comments Reported Other allergy 08/29/2014 Codeine, Sulfa, Bactrim, Latex Other allergy 01/01/2021 sulfa, codeine Admission Admission Data Admission Date: 01/01/2021 Admission Time: 9:00 Procedure Procedure Types Cath Procedure Peripheral Cath Diagnostic Procedure Miscellaneous Aspiration/Injection (Joint) Procedure Description Procedure Date Procedure Date: 01/01/2021 Procedure Start Time: 10:06 Procedure Staff Name Function Salome Mccoy MD Performing Physician Franky Pinto RT Monitor BARBER LYON RT Monitor Procedure Data Cath Procedure Fluoroscopy Diagnostic fluoroscopy Total fluoroscopy Time: 0.1 time: 0.1 min min Hemodynamics Rest Pre Cath Intra NCS Post Cath Procedure Log Time Note 9:57:32 SAFE-T PLUS MYELOGRAM TRAY opened to sterile field. 9:57:35 Franky Pinto RT (R) (CV) sent for patient. Start room use. 9:57:36 Time tracking: Regular hours (M-F 7:00 - 5:00) 9:57:43 Patient received from Other to IR Alert and oriented. Tansferred to table in Supine position. 9:57:44 Signed procedure consent form obtained from patient. 9:58:11 - 9:58:13 Pre-procedure instructions explained to patient. 9:58:14 Pre-op teaching completed and patient verbalized understanding. 9:58:24 Patient allergic to Other allergysulfa, codeine 9:58:35 Is patient on blood thinner?No 9:58:47 Left Hip was prepped with betadine and draped in sterile fashion. 9:58:48 - 10:05:01 Physician arrived 10:05:01 --------ALL STOP TIME OUT------ 10:06:43 Left Hip site verified by team. 10:06:55 Procedure started. 10:06:55 Full Disclosure recording started 10:12:04 Procedure ended.(Physican Out) 10:12:10 Fluoroscopy time 00.10 minutes. 10:12:11 Dose Area Product 1 mGy/cm. 10:12:24 Procedure and supply charges have been captured, reviewed, submitted an d are correct. 10:12:59 Patient transfered to Other with Ambulatory. Device Usage Item Name Manufacture Quantity Catalog Hospital Part Current Minimal Lot# / Number Charge Number Stock Stock Serial# Code SAFE-T [employer] 1 [id number] PLUS MYELOGRAM TRAY Signature Audit [place] Stage Time Signature Unsigned Intra-Procedure 01/01/2021 BARBER LYON RT 10:13:30 AM ([facility] [address] [place] [address]
[~2021-01-01 09:00] MED LIST changes: +CARAFATE1 G PO; +MIRALAX17 GM PO; +PROTONIX40 MG PO
== END | disposition home or self-care (01) ==
LOC: D.RAD 09:00
PROVIDERS: ATTEND Orthopaedic Surgery
DX: M16.12 Unilateral primary osteoarthritis, left hip (principal)